=== PATIENT | female | born 1980 | race Caucasian/White ===

== ENCOUNTER 2017-08-30 11:21 | Emergency (ER) | payer SELFPAY ==
[~2017-08-30] VITALS: Ht 160 cm; Wt 63.6 kg
[2017-08-30] MEDS ORDERED: CLEOCIN300 MG PO (12:40)
[2017-08-30] MEDS ORDERED: NAPROSYN500 MG PO (12:40)
[2017-08-30] MEDS ORDERED: NORCO 5/3251 TABLET PO (12:40)
[2017-08-30] MEDS ORDERED: PERIDEX473 ML MM (12:41)
[2017-08-30 12:50] VITALS: BP 136/89
== END 2017-08-30 12:51 | disposition home or self-care (01) ==
LOC: EME 11:21
DX: K02.9 Dental caries, unspecified (principal)
CPT/HCPCS: 99281; 99284